=== PATIENT | male | born 1940 | race Caucasian/White ===

== ENCOUNTER 2016-04-16 23:50 | Observation (INO) | payer MEDICARE ==
[2016-04-16 23:59] VITALS: BMI 25.9
[2016-04-17] MEDS ORDERED: SODIUM CHLORIDE 0.9% 10 ML FLUSH FLUSH PRN (00:04)
[2016-04-17] MEDS ORDERED: NS 1,000 ML IV ONE (00:04)
[2016-04-17 00:23] LABS: AUTOMATED BASOPHIL 0.8 % (0-2); AUTOMATED EOSINOPHIL 0.7 % (0-5); AUTOMATED MONOCYTE 5.8 % (3-10); AUTOMATED NEUTROPHIL 77.7 % (45-76); MPV 7.3 fL (7.4-10.4)
--- NOTE | 2016-04-17 00:26 | EDPRACDOC ---
- General Information Chief Complaint: Blood Pressure (Problems) Stated Complaint: WEAKNESS, NAUSEA Time Seen by Provider: 04/17/16 00:04 Information Source: Patient Home Medications: Home Medications Aspirin (Enteric Coated) [Ecotrin] 81 mg PO DAILY 03/30/13 Memantine HCl [Namenda] 10 mg PO BID 03/30/13 Multivitamin [Multiple Vitamins] 1 each PO DAILY 03/30/13 [place]-3 Fatty Acids/Fish Oil [Fish Oil 1,000 mg Softgel] 1 cap PO DAILY Rivastigmine Tartrate [Exelon 9.5 mg Patch] 9.5 mg TD DAILY 03/30/13 Allergies/Adverse Reactions: Allergies Allergy/AdvReac Type Severity Reaction Status Date / Time No Known Allergies Allergy Verified 04/17/16 00:29 - History of Present Illness Onset: [employer] HPI: WEAK AND DIZZY; STARTED TO SWEAT AND ALMOST PASSED OUT. DENIES PAIN. MED LIST REVIEWED. OTHERWISE ASYMPTOMATIC AT THIS TIME. Location: NONE Context: NONE Pain Quality: Denies: Aching Associated Signs and Symptoms: SWEATING; WEAKNESS; NO CP OR [facility] ED Past Medical History - History Reviewed Yes Nurses notes reviewed and agree except as marked - Patient Medical History Neurological History: Reports: Dementia Cardiac History: Reports: Hypertension Respiratory History: Denies: Pneumonia Psychological History: Denies: Depression Systemic History: Denies: Cancer Surgical History: Reports: Cholecystectomy - Family Medical History Reports: Cancer (SISTER-BREAST) - Social Medical History Smoking Status: Former smoker EDM Review of Systems - Review of Systems ROS Negative Except as Marked: Yes All systems reviewed and were negative except as marked - Physical Exam Constitutional: Alert (Awake), No apparent distress Oriented to: Person, Place Last recorded Vital Signs: Last Vital Signs Temp 97.6 F 04/16/16 23:54 Pulse 66 04/17/16 00:20 Resp 20 04/17/16 00:20 BP 188/88 H 04/17/16 00:20 Pulse Ox 94 04/17/16 00:20 Oxygen Pulse Oxygen Saturation 94 O2 Device Room Air Oxygen Flow Rate Fraction of Inspired Oxygen ( FIO2) - HEENT Head: Normal ( normocephalic) Eye Exam: Normal (PERRL, EOMI, Sclera white) Oropharynx: Normal (Pharynx:Moist without exudate,Gums-no swelling) Tympanic Membrane: Normal ENT EAC: Normal TMJ: Normal Nose: No Symptoms Reported (septum midline) Neck: Normal (FROM, trachea at midline) - Respiratory/Cardiovascular Respiratory: Normal - CTA (BBS clear to auscultation without adventitious sounds ) Cardiovascular: Normal (RRR without murmur, gallop or rub) - GI Auscultation: Normal (NABS) Palpation: Normal (Soft,No rebound or guarding, non distended) Tenderness: Non tender Argueta's Sign: Negative - Musculoskeletal Back: Normal (Non-Tender) Extremities: Normal (Normal tone, Pulses 2+ No cyanosis or edema, FROM) - Integumentary Skin: Normal, Warm, Dry Lymphatics: Normal (no adenopathy) - Neurologic Memory Impaired: Normal Motor Function: Normal (Normal tone, Pulses 2+ No cyanosis or edema, FROM) Cranial Nerve: Normal (CN II-X11 intact sensation, strength 5/5) Cerebellar: Normal Mood Description: Normal Perception: Normal - Results 04/17/16 00:10 04/17/16 00:10 - EKG EKG #1 [place]: Normal Rhythm: NSR Block: None Hypertrophy: None ST: Normal - Departure Yes I personally saw and evaluated the patient. Disposition: Admit IP To This Hospital Condition: Good Final Diagnosis: NEAR SYNCOPE, HTN EMERGENCY Referrals: Alan Siddiqui MD [Primary Care Provider] - One Week Prescriptions: No Action Rivastigmine Tartrate [Exelon 9.5 mg Patch] 9.5 mg TD DAILY Memantine HCl [Namenda] 10 mg PO BID [place]-3 Fatty Acids/Fish Oil [Fish Oil 1,000 mg Softgel] 1 cap PO DAILY Multivitamin [Multiple Vitamins] 1 each PO DAILY Aspirin (Enteric Coated) [Ecotrin] 81 mg PO DAILY Decision to Admit Time: 00:58 Decision to admit date: 04/17/16 Decision to admit: from ED
[2016-04-17 00:27] LABS: BLOOD UREA NITROGEN 14 MG/DL (9-20); CALCIUM 9.2 MG/DL (8.4-10.2); CALCULATED OSMOLALITY 275 MOs/Kg (270-290); CHLORIDE 100 mEq/L (98-107); GLUCOSE 182 mg/dL (70-99); SODIUM LEVEL 140 mEq/L (137-146); TOTAL PROTEIN 8.2 G/DL (6.3-8.2)
[2016-04-17 00:29] LABS: PARTIAL THROMB. TIME 23.3 SEC (22-35)
--- NOTE | 2016-04-17 00:59 | DIRPT ---
CLINICAL DATA: Acute onset of generalized weakness and dizziness. Diaphoresis. Initial encounter. EXAM: PORTABLE CHEST 1 VIEW COMPARISON: None. FINDINGS: The lungs are well-aerated and clear. There is no evidence of focal opacification, pleural effusion or pneumothorax. The cardiomediastinal silhouette is within normal limits. No acute osseous abnormalities are seen. IMPRESSION: No acute cardiopulmonary process seen. Electronically Signed By: Álvaro Murphy M.D. On: 04/17/2016 00:56
[2016-04-17 01:11] LABS: AMORPHOUS OCC; LEUKOCYTES/URINE NEG (NEGATIVE); NITRITE/URINE NEG (NEGATIVE); URINE OCCULT BLOOD NEG (NEG/TRACE); WBC/URINE 0-2 (0-2)
--- NOTE | 2016-04-17 01:12 | DIRPT ---
CLINICAL DATA: 75-year-old male with vertigo EXAM: CT HEAD WITHOUT CONTRAST TECHNIQUE: Contiguous axial images were obtained from the base of the skull through the vertex without intravenous contrast. COMPARISON: CT dated 10/08/2012 FINDINGS: The ventricles are mildly dilated and the sulci are prominent compatible with age-related atrophy. Periventricular and deep white matter hypodensities represent chronic microvascular ischemic changes. There is no intracranial hemorrhage. No mass effect or midline shift identified. The visualized paranasal sinuses and mastoid air cells are well aerated. The calvarium is intact. IMPRESSION: No acute intracranial hemorrhage. Age-related atrophy and chronic microvascular ischemic disease. If symptoms persist and there are no contraindications, MRI may provide better evaluation if clinically indicated. Electronically Signed By: Florian Hodge M.D. On: 04/17/2016 01:09
[2016-04-17] MEDS ORDERED: hydrALAZINE 20 MG/ML VIAL IV PRN (02:06)
[2016-04-17] MEDS ORDERED: Docusate Sodium 100 MG CAP PO PRN (02:08)
[2016-04-17] MEDS ORDERED: ACETAMINOPHEN 325 MG/TAB TABLET PO PRN (02:08)
[2016-04-17] MEDS ORDERED: PROMETHAZINE 25 MG/ML VIAL IV PRN (02:08)
[2016-04-17] MEDS ORDERED: ONDANSETRON HCL 4 MG/2 ML VIAL IV PRN (02:08)
[2016-04-17] MEDS ORDERED: ACETAMINOPHEN 650 MG SUPP PR PRN (02:08)
[2016-04-17] MEDS ORDERED: MAGNESIUM HYDROXIDE 30 ML BOTTLE PO PRN (02:08)
[2016-04-17] MEDS ORDERED: Aluminum;Magnesium;Simethicone 30 ML UDC PO PRN (02:08)
--- NOTE | 2016-04-17 02:17 | HISTPHYS ---
- Chief Complaint Near syncope. - History of Present Illness Patient is a very pleasant and generally healthy 75-year-old male who states that he was in his usual state of health when returning home from dinner earlier this evening. He changed out of his dress close and prepared to take his dog for a walk when he had a sudden onset of dizziness and diaphoresis along with some nausea but no vomiting. He stated that he felt as if he were about to pass out but again did not lose any consciousness. He felt very weak and throughout this episode. He sat down and rested which gave him some minor relief but he continued to have which he describes as almost shaking chills for period of time. Currently, states he feels much better but states that he still feels somewhat lightheaded but not quite back to his baseline. He has had no shannon shortness of breath, chest congestion or cough, chest pain, hemoptysis or hematemesis. He has had no abdominal pain. He denies any recent fevers or significant URI symptoms. He has had no dysuria pyuria or hematuria. - Medical History Cardiac History: Reports: Hypertension (Not currently on medication.) Respiratory History: Denies: Pneumonia GI/ History: Reports: No Significant History Musculoskeletal History: Reports: No Significant History Systemic History: Reports: No Significant History Neurological History: Reports: Dementia Psychological History: Denies: Depression - Surgical History Reports: Cholecystectomy - Medictions/Allergies Allergies No Known Allergies Allergy (Verified 04/17/16 00:29) Current Medication List: Reviewed Home Medications Aspirin (Enteric Coated) [Ecotrin] 81 mg PO DAILY 03/30/13 Memantine HCl [Namenda] 10 mg PO BID 03/30/13 Multivitamin [Multiple Vitamins] 1 each PO DAILY 03/30/13 [place]-3 Fatty Acids/Fish Oil [Fish Oil 1,000 mg Softgel] 1 cap PO DAILY Rivastigmine Tartrate [Exelon 9.5 mg Patch] 9.5 mg TD DAILY 03/30/13 - Family History Reports: Cancer (SISTER-BREAST) - Social History Travel Outside of [place] in the Last 3 Months?: No Lives: With Family Smoking Status: Former smoker Social History: Denies: Alcohol Use, Substance Use Disorder - Review of Systems Yes All systems reviewed and were negative except as marked Constitutional: Chills, Diaphoresis, Fatigue, Weakness. negative: Fever, Loss of Appetite, Weight loss Eyes: negative: Blurred Vision, Double Vision, Pain Ears: No Symptoms Reported. negative: Pain Nose: No Symptoms Reported. negative: Bleeding, Swelling Mouth: No Symptoms Reported Throat/Neck: No Symptoms Reported. negative: Swelling Respiratory: Wheezing (Very occasional/rare only.). negative: Hemoptysis, Shortness of Breath, Sputum Cardiovascular: No Symptoms Reported. negative: Chest Pain, Cyanosis, Edema, Orthopnea, Palpitations, PND, Skin Mottling Gastrointestinal: Nausea, Vomiting. negative: Abdominal Pain, Diarrhea, Constipation, Melena, Hematochezia, Dysphasia, Heartburn, Hemorrhoids, Appetite Changes Genitourinary: No Symptoms Reported. negative: Discharge, Hematuria Neurological: Headache, Weakness Integumentary: negative: Bruising, Itching, Rash Allergic/Immunologic: No Symptoms Reported (no rashes or lesions) Hematologic: No Symptoms Reported (No chronic anemia, bleeding, or easy bruising.) Endocrine: No Symptoms Reported (No thyroid issues, polyuria, or polydipsia.) Psychiatric: negative: Hallucinations, Suicidal - Physical Exam Vital Signs: Vital Signs - 8 hr 04/16/16 04/17/16 04/17/16 23:54 00:20 00:33 Temperature 97.6 F Pulse Rate 80 66 61 Respiratory 20 20 20 Rate Blood Pressure 208/110 H 188/88 H 192/99 H Pulse Oxygen 96 94 92 Saturation 04/17/16 04/17/16 04/17/16 01:24 01:28 01:29 Temperature Pulse Rate 64 72 79 Respiratory 20 Rate Blood Pressure 164/77 151/69 159/76 Pulse Oxygen 92 Saturation 04/17/16 04/17/16 01:30 02:08 Temperature Pulse Rate 90 62 Respiratory 20 Rate Blood Pressure 150/76 141/73 Pulse Oxygen 94 Saturation Note: Improvement in blood pressure coincided with administration of clonidine 0.1 mg p.o.. Constitutional: No apparent distress Oriented to: Time, Person, Place - HEENT Head: Normal. negative: Deformity, Laceration Eye: negative: Conjunctival Injection, Scleral Icterus Oropharynx: negative: Drooling, Exudate, Red, Tonsillar Hypertrophy TMJ: Normal Respiratory: Normal - CTA. negative: Rales, Rhonchi, Wheezes Cardiovascular: Normal. negative: Irregular, Diastolic murmur, Systolic murmur - GI Auscultation: Normal Palpation: Normal. negative: Mass Tenderness: Non tender. negative: Guarding, Rebound, Rigidity Argueta's Sign: Negative - Musculoskeletal Back: Normal. negative: CVA Tenderness Extremities: negative: Clubbing, Cyanosis, Edema, Pedal Edema - Integumentary Skin: Warm, Dry. negative: Rash, Mottling, Jaundice Lymphatics: Normal - Neurologic Memory Impaired: Normal Motor Function: Normal Cranial Nerve: Normal Cerebellar: Normal Mood Description: Normal Thought: Coherent Perception: Normal - Focused CV Perfusion Exam Vital Signs: Last Vital Signs Temp 97.6 F 04/16/16 23:54 Pulse 62 04/17/16 02:08 Resp 20 04/17/16 02:08 BP 141/73 04/17/16 02:08 Pulse Ox 94 04/17/16 02:08 - Lab Results 04/17/16 00:10 04/17/16 00:10 Laboratory Last Values WBC 12.7 xk/uL (3.8-10.8) H 04/17/16 00:10 RBC 5.42 xM/uL (4.70-6.10) 04/17/16 00:10 Hgb 15.9 g/dL (14.0-18.0) 04/17/16 00:10 Hct 47.2 % (42-52) 04/17/16 00:10 MCV 87 fL (80-94) 04/17/16 00:10 MCH 29.4 pg (27-32) 04/17/16 00:10 MCHC 33.8 g/dl (33-36) 04/17/16 00:10 RDW 14.3 % (11.5-14.5) 04/17/16 00:10 Plt Count 262 xk/uL (130-400) 04/17/16 00:10 MPV 7.3 fL (7.4-10.4) L 04/17/16 00:10 Neut % (Auto) 77.7 % (45-76) H 04/17/16 00:10 Lymph % (Auto) 15.0 % (17-44) L 04/17/16 00:10 [place] % (Auto) 5.8 % (3-10) 04/17/16 00:10 Eos % (Auto) 0.7 % (0-5) 04/17/16 00:10 Baso % (Auto) 0.8 % (0-2) 04/17/16 00:10 Absolute Neuts (auto) 9.78 xk/uL (1.7-8.2) H 04/17/16 00:10 Absolute Lymphs (auto) 1.91 xk/uL (0.65-4.75) 04/17/16 00:10 PT 10.7 SEC (9.2-11.2) 04/17/16 00:10 INR 1.0 04/17/16 00:10 APTT 23.3 SEC (22-35) 04/17/16 00:10 Sodium 140 mEq/L (137-146) 04/17/16 00:10 Potassium 3.9 mEq/L (3.5-5.1) 04/17/16 00:10 Chloride 100 mEq/L (98-107) 04/17/16 00:10 Carbon Dioxide 28 mMOL/L (22-33) 04/17/16 00:10 Anion Gap 16 mEq/L (8-16) 04/17/16 00:10 BUN 14 MG/DL (9-20) 04/17/16 00:10 Creatinine 1.10 MG/DL (0.66-1.25) 04/17/16 00:10 Estimated GFR (MDRD) > 60 mL/min (>=60) 04/17/16 00:10 Glucose 182 mg/dL (70-99) H 04/17/16 00:10 Calculated Osmolality 275 MOs/Kg (270-290) 04/17/16 00:10 Calcium 9.2 MG/DL (8.4-10.2) 04/17/16 00:10 Total Bilirubin 0.9 MG/DL (0.2-1.3) 04/17/16 00:10 AST 61 IU/L (17-59) H 04/17/16 00:10 ALT 84 IU/L (21-72) H 04/17/16 00:10 Alkaline Phosphatase 66 IU/L (50-160) 04/17/16 00:10 Troponin I < 0.01 ng/mL (<.04) 04/17/16 00:10 Xay-I-Foqpmxponng Pept 51 pg/mL (0-1800) 04/17/16 00:10 Total Protein 8.2 G/DL (6.3-8.2) 04/17/16 00:10 Albumin 4.7 G/DL (3.5-5.0) 04/17/16 00:10 Urine Color Yellow 04/17/16 00:59 Urine Clarity Sl cldy 04/17/16 00:59 Urine pH 7.0 (5.0-8.0) 04/17/16 00:59 Ur Specific [place] 1.010 (1.003-1.035) 04/17/16 00:59 Urine Protein 1+ (NEG/TRACE) H 04/17/16 00:59 Urine Glucose (UA) Neg (NEGATIVE) 04/17/16 00:59 Urine Ketones Neg (NEGATIVE) 04/17/16 00:59 Urine Occult Blood Neg (NEG/TRACE) 04/17/16 00:59 Urine Nitrite Neg (NEGATIVE) 04/17/16 00:59 Urine Bilirubin Neg (NEGATIVE) 04/17/16 00:59 Urine Urobilinogen <2.0 MG/DL (0-1) 04/17/16 00:59 Ur Leukocyte Esterase Neg (NEGATIVE) 04/17/16 00:59 Urine WBC 0-2 (0-2) 04/17/16 00:59 Amorphous Sediment Occ 04/17/16 00:59 Urine Bacteria Few (NEG/FEW) 04/17/16 00:59 Urine Mucus Occ (NEG/OCC) 04/17/16 00:59 - Diagnostic Findings PORTABLE CHEST 1 VIEW COMPARISON: None. FINDINGS: The lungs are well-aerated and clear. There is no evidence of focal opacification, pleural effusion or pneumothorax. The cardiomediastinal silhouette is within normal limits. No acute osseous abnormalities are seen. IMPRESSION: No acute cardiopulmonary process seen. EXAM: CT HEAD WITHOUT CONTRAST TECHNIQUE: Contiguous axial images were obtained from the base of the skull through the vertex without intravenous contrast. COMPARISON: CT dated 10/08/2012 FINDINGS: The ventricles are mildly dilated and the sulci are prominent compatible with age-related atrophy. Periventricular and deep white matter hypodensities represent chronic microvascular ischemic changes. There is no intracranial hemorrhage. No mass effect or midline shift identified. The visualized paranasal sinuses and mastoid air cells are well aerated. The calvarium is intact. IMPRESSION: No acute intracranial hemorrhage. Age-related atrophy and chronic microvascular ischemic disease. If symptoms persist and there are no contraindications, MRI may provide better evaluation if clinically indicated. 12 lead EKG: Normal sinus rhythm at 63 beats per min with normal intervals and no acute ST-T wave changes. No Q-waves were seen. This is a normal EKG. - Assessment (1) Accelerated hypertension I10 - ESSENTIAL (PRIMARY) HYPERTENSION Acute Present on Admission: Yes Patient with history of hypertension although not currently under any medication therapy. Presents this evening with sudden onset near syncope, diaphoresis and weakness concomitant with elevated blood pressure levels. Blood pressure high at 208/110 mm Hg. Patient was given clonidine 0.1 mg p.o. with significant improvement in his blood pressure as well as in his symptoms. Still feels a bit lightheaded but improved. Had no actual loss of consciousness. CT head was negative. Plan: Will continue clonidine therapy at 0.1 mg p.o. twice daily as tolerated. Will also add p.r.n. hydralazine IV therapy. Continue to monitor vital signs and blood pressures per PCU protocol until stabilized. (2) Near syncope R55 - SYNCOPE AND COLLAPSE Acute Present on Admission: Yes Patient with near syncopal episode although no actual loss of consciousness. Likely related to acutely elevated blood pressure. Currently improved on clonidine therapy. Plan: Blood pressure control and monitoring as outlined in section above. Fall precautions. (3) Dementia F03.90 - UNSPECIFIED DEMENTIA WITHOUT BEHAVIORAL DISTURBANCE Chronic Present on Admission: Yes Qualifiers: Dementia type: unspecified type Dementia behavioral disturbance: without behavioral disturbance Qualified Code(s): F03.90 - Unspecified dementia without behavioral disturbance Patient with longstanding with apparently may very mild dementia on combination of Namenda p.o. and Exelon patch. According to patient and his family, he has recently been changed over to a combination agent which covers both of these but is not sure of the name and does not have a medication with them. Will hold both of these agents for now until later this morning when patient's family can bring in the actual medication. Otherwise supportive care with fall and aspiration precautions. (4) Transaminitis R74.0 - NONSPEC ELEV OF LEVELS OF TRANSAMNS & LACTIC ACID DEHYDRGNSE Acute Present on Admission: Clinically Unable to Determine Patient with slightly elevated transaminases on chemistry panel. No history of alcohol abuse or abuse either currently or previously. No history of prior elevations although there are no old LFTs available for review. Plan: Avoid use of alcohol. Will need to be followed up by primary care physician with outpatient labs. (5) Elevated random blood glucose level R73.09 - OTHER ABNORMAL GLUCOSE Acute Present on Admission: Yes Patient with mildly elevated blood glucose level of 182. Has no history of diabetes mellitus. This is most likely related to acute physiologic stress in setting of accelerated hypertension. Plan: Monitor fingerstick glucoses q.a.c. and HS with the next 24 hours and based on these findings will proceed as needed. Will also check a hemoglobin A1c. Case Care Discussed with: Patient, Family Total Time: 70 minutes. Critical Care: No Code: [id number]
[2016-04-17] MEDS: NS 1,000 ML IV SCH ×3 (02:56→23:56)
[2016-04-17] MEDS ORDERED: Vaccine Screening Complete SCH (03:00)
[2016-04-17] MEDS: OMEGA-3-ACID ETHYL ESTERS 1000 MG CAP PO SCH (08:43)
[2016-04-17] MEDS: VITAMINS, MULTIPLE CAP PO SCH (08:43)
[2016-04-17] MEDS ORDERED: RIVASTIGMINE TARTRATE TOP SCH (09:00)
[2016-04-17] MEDS ORDERED: Non-Formulary Medication ITEM (Multivitamin [Multiple Vitamins] 1 EACH) PO SCH (09:00)
[2016-04-17] MEDS ORDERED: MEMANTINE HCL 10 MG TAB PO SCH (09:00)
[2016-04-17] MEDS ORDERED: ENOXAPARIN 40 MG/0.4 ML PFS SQ SCH (18:00)
[2016-04-18] MEDS: NS 1,000 ML IV SCH (04:37)
[2016-04-18 04:44] LABS: MPV 7.6 fL (7.4-10.4)
[2016-04-18 05:10] LABS: BLOOD UREA NITROGEN 18 MG/DL (9-20); CALCIUM 8.7 MG/DL (8.4-10.2); CALCULATED OSMOLALITY 271 MOs/Kg (270-290); CHLORIDE 105 mEq/L (98-107); GLUCOSE 111 mg/dL (70-99); SODIUM LEVEL 139 mEq/L (137-146)
--- NOTE | 2016-04-18 08:10 | DIRPT ---
CLINICAL DATA: 75-year-old male with a history of generalize weakness. Cardiovascular risk factors are none listed. EXAM: BILATERAL CAROTID DUPLEX ULTRASOUND TECHNIQUE: Lux scale imaging, color Doppler and duplex ultrasound were performed of bilateral carotid and vertebral arteries in the neck. COMPARISON: None FINDINGS: Criteria: Quantification of carotid stenosis is based on velocity parameters that correlate the residual internal carotid diameter with NASCET-based stenosis levels, using the diameter of the distal internal carotid lumen as the denominator for stenosis measurement. The following velocity measurements were obtained: RIGHT ICA: Systolic 137 cm/sec, Diastolic 8 cm/sec CCA: 125 cm/sec SYSTOLIC ICA/CCA RATIO: 1.1 ECA: 181 cm/sec LEFT ICA: Systolic 108 cm/sec, Diastolic 11 cm/sec CCA: 119 cm/sec SYSTOLIC ICA/CCA RATIO: 0.9 ECA: 167 cm/sec Right Brachial SBP: Not acquired Left Brachial SBP: Not acquired RIGHT CAROTID ARTERY: No significant calcified disease of the right common carotid artery. Intermediate waveform maintained. Mild heterogeneous plaque without significant calcifications at the right carotid bifurcation. Low resistance waveform of the right ICA. No significant tortuosity. RIGHT VERTEBRAL ARTERY: Antegrade flow with low resistance waveform. LEFT CAROTID ARTERY: No significant calcified disease of the left common carotid artery. Intermediate waveform maintained. Mild heterogeneous plaque at the left carotid bifurcation without significant calcifications. Low resistance waveform of the left ICA. LEFT VERTEBRAL ARTERY: Antegrade flow with low resistance waveform. IMPRESSION: Color duplex indicates minimal heterogeneous plaque, with no hemodynamically significant stenosis by duplex criteria in the extracranial cerebrovascular circulation. Signed, Abhinav Irby DO [facility] Electronically Signed By: Abhinav Irby D.O. On: 04/18/2016 08:07
--- NOTE | 2016-04-18 08:26 | CAPUECHO ---
INDICATION: SYNCOPE HEIGHT: 180.3 cm (5 ft 11.0 in) WEIGHT: 83.5 kg (184.0 lbs) BP: 118/68 BSA: 2.808874 m MEASUREMENTS 2D RVIDd: 3.3 cm LA Diam: 3.4 cm EF Biplane: 75.09 % LAESV MOD A4C: 51.7 ml LAESV MOD A2C: 77.6 ml LAESV Index (A-L): 36.15 ml/m M-MODE IVSd: 1.2 cm LVIDd: 5.6 cm LVPWd: 1.3 cm LVIDs: 4.2 cm EF(Teich): 50 % DOPPLER MV E Dong: 0.85 m/s MV A Dong: 1.01 m/s MV PHT: 51.94 ms MVA By PHT: 4.24 cm AV Vmax: 1.32 m/s TR Vmax: 2.24 m/s TR maxP mmHg RVSP: 23.06 mmHg FINDINGS ------- Procedure:2D images, m-mode, color and spectral Doppler were obtained and reviewed. ECG rhythm:Sinus rhythm. Study quality:This was a technically adequate study. Left Ventricle:The left ventricular size is normal. There is mild concentric left ventricular hype rtrophy. There is normal global left ventricular contractility. Overall left ventricular systoli c function is normal with, an EF between 60 - 65 %. The diastolic filling pattern indicates impair ed relaxation. No regional wall motion abnormalities were noted. Right Ventricle:The right ventricle is normal in size and function. Left Atrium:The left atrium is normal in size. Right Atrium:The right atrium is normal in size and function. Aortic Valve:There is mild aortic valve sclerosis. Trace amount of aortic regurgitation. There is no evidence of aortic stenosis. Mitral Valve:Normal appearing mitral valve. No mitral regurgitation. Tricuspid Valve:The tricuspid valve appears structurally normal. Trace tricuspid regurgitation pre sent. The right ventricular systolic pressure, as measured by Doppler, is 23 mmhg. Pulmonic Valve:The pulmonic valve is normal. There is no pulmonic regurgitation present. Aorta:The aortic root, ascending aorta and aortic arch appear normal. IVC:Normal inferior vena cava with normal inspiratory collapse. Pulmonary Veins:The flow patterns, measured by Doppler, appear normal. Pericardium:Echo free space may represent effusion or a pericardial fat pad. There is no pericardi al effusion. CONCLUSIONS 1. There is normal global left ventricular contractility. 2. Overall left ventricular systolic function is normal with, an EF between 60 - 65 %. Electronically Signed By: Baltazar Salgado MD, [facility] Electronically Signed On: 07:55:07
[2016-04-18] MEDS: OMEGA-3-ACID ETHYL ESTERS 1000 MG CAP PO SCH (09:21)
[2016-04-18] MEDS: VITAMINS, MULTIPLE CAP PO SCH (09:21)
[2016-04-18 11:59] VITALS: BP 137/63; TEMP 97.9
--- NOTE | 2016-04-18 14:04 | PCM.DCS92 ---
- Final/Secondary Discharge Diagnosis (1) Accelerated hypertension Acute I10 - ESSENTIAL (PRIMARY) HYPERTENSION Present on Admission: Yes Comment: Discontinue clonidine given relative bradycardia. Discharge home on low-dose of lisinopril.. Patient is to check his blood pressure is twice a day and keep strict record of readings. (2) Near syncope Acute R55 - SYNCOPE AND COLLAPSE Present on Admission: Yes Comment: Etiology not clear. Workup negative. Will arrange for Holter monitor to complete investigation (3) Dementia Chronic F03.90 - UNSPECIFIED DEMENTIA WITHOUT BEHAVIORAL DISTURBANCE Present on Admission: Yes unspecified type without behavioral disturbance F03.90 - Unspecified dementia without behavioral disturbance Comment: Continue home meds and supportive care (4) Dyslipidemia (high LDL; low HDL) Acute E78.4 - OTHER HYPERLIPIDEMIA Present on Admission: Yes Plan/Goal/Comment: Continue fish oil supplements Discharge Disposition: Home Discharge Condition: Good Cognitive Discharge Status: Unimpaired Fuctional Discharge Status: Independent Physician Follow up/Referrals: Alan Siddiqui MD [Primary Care Provider] - 3-4 Days Home Medications / New Prescriptions: New Lisinopril 10 mg PO DAILY #30 tablet Continue Peosta-3 Fatty Acids/Fish Oil [Fish Oil 1,000 mg Softgel] 1 cap PO DAILY Multivitamin [Multiple Vitamins] 1 each PO DAILY Aspirin (Enteric Coated) [Ecotrin] 81 mg PO DAILY Memantine HCl/Donepezil HCl [Namzaric 28 mg-10 mg Capsule] 1 each PO DAILY O2 Device: Room Air Diet at Discharge: Heart Healthy, Low Salt, High Fiber Activity: No Restrictions, As Tolerated, No Heavy Lifting Call Office For: Worsening Symptoms, Fever over 101 F Discontinue use of:: Alcohol, All Illegal Substances, All Types of Tobacco - DC Summary Notes Hospital Course Note:: Discharge summary on patient named EVERARDO MORENO admitted to [facility] on 04/17/16 by Yaniv Carmen MD. Date of discharge is . Patient has initially presented to emergency room on April 17 for evaluation of sudden onset of extreme dizziness, nausea, diaphoresis and near- syncope. Please refer to the admission for further details. Upon arrival in ED patient blood pressure was found to be elevated 210/100. Monitor showed normal sinus rhythm. Patient was admitted to monitor bed, outpatient regimen for his chronic medical conditions was continued. Workup was undertaken; carotid Dopplers showed no hemodynamically significant stenosis, echo showed normal LV systolic function and no significant valvular heart disease, head CT showed age related atrophy but no acute changes. Patient required BP meds to keep blood pressure under control and overall has responded to medical therapy fairly well. His activity level was gradually advanced and by time of discharge she was able to ambulate freely with no assistance. There was no further episodes of syncope near-syncope or diaphoresis during hospital stay. Patient's son and were made fully aware of results of testing-copies of all x-rays provided the family. His blood tests remained within normal limits. Based on negative workup recommendation was made for outpatient Holter monitoring to rule out any tachy or bradyarrhythmia contributing to his symptoms. This test will be arranged through [facility] office. On April 18 thin clinically stable improved condition patient has been discharged home to the care of the family and his PCP. Total Time: 45 min . Code: 62543 - Physical Exam Vital Signs: Last Vital Signs Temp 97.9 F 04/18/16 11:58 Pulse 57 L 04/18/16 11:58 Resp 18 04/18/16 11:58 BP 137/63 04/18/16 11:58 Pulse Ox 94 04/18/16 11:58 Oxygen Pulse Oxygen Saturation 94 O2 Device Room Air Oxygen Flow Rate Fraction of Inspired Oxygen ( FIO2) Constitutional: No apparent distress, Alert Oriented to: Time, Person, Place - HEENT Head: Normal. negative: Deformity, Laceration Eye: Normal. negative: Conjunctival Injection, Scleral Icterus Oropharynx: Normal. negative: Drooling, Exudate, Red, Tonsillar Hypertrophy ENT EAC: Normal TMJ: Normal Nose: No Symptoms Reported. negative: Bleeding, Swelling - Respiratory/Cardiovascular Respiratory: Normal - CTA. negative: Rales, Rhonchi, Wheezes Cardiovascular: Normal. negative: Irregular, Diastolic murmur, Systolic murmur - GI Auscultation: Normal Palpation: Normal. negative: Mass Tenderness: Non tender. negative: Guarding, Rebound, Rigidity Argueta's Sign: Negative Rectal Exam: Deferred - Musculoskeletal Back: Normal. negative: CVA Tenderness Extremities: Normal. negative: Clubbing, Cyanosis, Edema, Pedal Edema - Integumentary Skin: Normal, Warm, Dry. negative: Rash, Mottling, Jaundice Lymphatics: Normal - Neurologic Memory Impaired: Normal Motor Function: Normal Cranial Nerve: Normal Cerebellar: Normal Mood Description: Normal, Anxious Thought: Coherent Perception: Normal - Other Exam Other Exam Findings: Allergies No Known Allergies Allergy (Verified 04/17/16 00:29) Last Vital Signs Temp 97.9 F 04/18/16 11:58 Pulse 57 L 04/18/16 11:58 Resp 18 04/18/16 11:58 BP 137/63 04/18/16 11:58 Pulse Ox 94 04/18/16 11:58 04/18/16 04:05 04/18/16 04:05 Abnormal Lab Results 04/17/16 04/17/16 04/18/16 17:05 20:51 04:05 RBC Hct Glucose 111 H POC Capillary Glucose 114 H 124 H 04/18/16 04/18/16 04/18/16 04:05 06:05 11:42 RBC 4.69 L Hct 41.1 L Glucose POC Capillary Glucose 102 H 149 H Patient Name: EVERARDO MORENO Courtesy Copy to: Diagnostic Imaging Report [facility] [address] [address] [phone] Diagnostic Imaging Services Courtesy Copy to: Diagnostic Imaging Report Patient Name: EVERARDO MORENO LOC: ED : 1940 AGE: 75 Order Date:04/17/16 Date of Service:09/24 Report # [id number] Ord Physician: Harry Hurst MD Exam # [id number] Emergency Physician: Harry Hurst MD Exam(s): [id number] CT/CT HEAD W/O CM CLINICAL DATA: 75-year-old male with vertigo EXAM: CT HEAD WITHOUT CONTRAST TECHNIQUE: Contiguous axial images were obtained from the base of the skull through the vertex without intravenous contrast. COMPARISON: CT dated 10/08/2012 FINDINGS: The ventricles are mildly dilated and the sulci are prominent compatible with age-related atrophy. Periventricular and deep white matter hypodensities represent chronic microvascular ischemic changes. There is no intracranial hemorrhage. No mass effect or midline shift identified. The visualized paranasal sinuses and mastoid air cells are well aerated. The calvarium is intact. IMPRESSION: No acute intracranial hemorrhage. Age-related atrophy and chronic microvascular ischemic disease. If symptoms persist and there are no contraindications, MRI may provide better evaluation if clinically indicated. Electronically Signed By: Florian Hodge M.D. On: 04/17/2016 01:09 Electronically Signed By: Florian Hodge MD Electronically Signed Date/Time: 112 Dictate Date/Time: 04/17/16 0106 Technologist: Cindy Gomez Transcribed By: Adeola Transcribed Date/Time: 04/17/16 0109
[2016-04-18 14:40] VITALS: PULSE 55
== END 2016-04-18 15:30 | disposition home or self-care (01) ==
LOC: ED 23:50 → INTOOBSV 04-17 01:48 → PCU 04-17 01:48
PROVIDERS: ATTEND Internal Medicine
DX: I10 Essential (primary) hypertension (principal); R55 Syncope and collapse; F03.90 Unspecified dementia, unspecified severity, without behavioral disturbance, psychotic disturbance, mood disturbance, and anxiety; E78.4 Other hyperlipidemia; Z79.82 Long term (current) use of aspirin; Z79.899 Other long term (current) drug therapy
CPT/HCPCS: 36415; 70450; 71010; 80048; 80053; 81001; 82962; 83036; 83880; 84484; 85025; 85027; 85610; 85730; 93005; 93880; 96360; 96361; 96372; 99284; A9270; C8929; G0378; J1650; 93306; J3490